=== PATIENT | male | born 1970 | race Caucasian/White ===

== ENCOUNTER 2022-03-15 01:10 | Inpatient (IN) | payer BC ==
[~2022-03-15] VITALS: Ht 175.3 cm; Wt 95.5 kg
[2022-03-15 02:13] LABS: BASO # 0.1 10^3/uL (0.0-0.2); BASO % 0.6 % (0.0-1.0); EOS # 0.1 10^3/uL (0.0-0.5); EOS % 1.1 % (0.0-3.0); HEMATOCRIT 42.8 % (42.0-52.0); HEMOGLOBIN 15.1 g/dl (13.5-17.5); LYMPH # 1.7 10^3/uL (1.5-5.0); LYMPH % 21.6 % (24.0-44.0); MEAN CORPUSCULAR HEMOGLOBIN 29.2 pg (27.0-33.0); MEAN CORPUSCULAR HGB CONC 35.3 g/dl (32.0-36.5); MEAN CORPUSCULAR VOLUME 82.8 fl (80.0-96.0); MONO # 0.5 10^3/uL (0.0-0.8); MONO % 5.9 % (2.0-8.0); NEUTROPHILS # 5.5 10^3/uL (1.5-8.5); PLATELET COUNT, AUTOMATED 216 10^3/uL (150-450); RED BLOOD COUNT 5.17 10^6/uL (4.30-6.10); WHITE BLOOD COUNT 7.9 10^3/uL (4.0-10.0)
[2022-03-15 02:24] LABS: INR 0.89; PROTHROMBIN TIME 12.5 SECONDS (12.7-14.5)
[2022-03-15 02:57] LABS: ALBUMIN 3.8 GM/DL (3.2-5.2); ALT/SGPT 38 U/L (12-78); BILIRUBIN,DIRECT 0.1 MG/DL (0.0-0.2); BILIRUBIN,TOTAL 0.2 MG/DL (0.2-1.0); BLOOD UREA NITROGEN 21 MG/DL (7-18); CALCIUM LEVEL 8.9 MG/DL (8.5-10.1); CARBON DIOXIDE LEVEL 26 MEQ/L (21-32); CHLORIDE LEVEL 105 MEQ/L (98-107); CREATININE FOR GFR 1.42 MG/DL (0.70-1.30); ETHYL ALCOHOL (ETHANOL) < 0.003 % (0.000-0.010); GLOMERULAR FILTRATION RATE 56.4 (>60); GLUCOSE, FASTING 148 MG/DL (70-100); NT-PRO BNP 10 PG/ML (<125); SODIUM LEVEL 137 MEQ/L (136-145); TOTAL PROTEIN 6.5 GM/DL (6.4-8.2)
[2022-03-15 03:22] LABS: CK-MB VALUE MASS < 1.0 NG/ML (<3.6); CPK CREATINE PHOSPHOKINASE 147 U/L (39-308); MB/CK RELATIVE INDEX 0.68 (< OR =4)
[2022-03-15] MEDS ORDERED: D200CAP3 PO (05:40)
[2022-03-15] MEDS ORDERED: HOME MED LIST COMPLETE! XX SCH (05:45)
[2022-03-15] MEDS ORDERED: METOPROLOL TART 25 MG TABLET PO SCH (06:00)
[2022-03-15] MEDS ORDERED: MOM 30ML SUSPENSION UDC PO PRN (06:00)
[2022-03-15] MEDS ORDERED: ACETAMINOPHEN TAB 650MG DOSE (2X325MG) PO PRN (06:00)
[2022-03-15] MEDS ORDERED: MAALOX 30 ML SUSP *UDC PO PRN (06:00)
[2022-03-15] MEDS ORDERED: HEPARIN SOD (PORCINE) 5000UNITS/ML 1ML VIAL/SYRINGE SC SCH (06:00)
[2022-03-15 06:09] LABS: RSV AMPLIFICATION NEGATIVE (NEGATIVE)
[2022-03-15] MEDS: NS 1,000 ML IV SCH ×2 (06:44→10:33)
[2022-03-15 08:32] VITALS: BP 121/76
[2022-03-15] MEDS ORDERED: ASPIRIN 81 MG CHEW TABLET PO SCH (09:00)
[2022-03-15] MEDS ORDERED: METO1TAB87 PO (09:51)
[2022-03-15] MEDS ORDERED: ASPI81CH8 PO (09:51)
[2022-03-15] MEDS ORDERED: SELF1KIT MC (09:53)
[2022-03-15 13:36] VITALS: BP 123/76
[2022-03-15] MEDS ORDERED: ASPI81TA26 PO (17:44)
[2022-03-15] MEDS ORDERED: ACET-910 PO (17:44)
== END 2022-03-15 13:36 | disposition home or self-care (01) | DRG 201 ==
LOC: M ED 01:10 → M ED INP 06:00
PROVIDERS: ADMIT Family Medicine; ATTEND Family Medicine
DX: I48.91 Unspecified atrial fibrillation (principal); R55 Syncope and collapse; N17.9 Acute kidney failure, unspecified; I27.20 Pulmonary hypertension, unspecified; G47.33 Obstructive sleep apnea (adult) (pediatric); F12.10 Cannabis abuse, uncomplicated; N40.0 Benign prostatic hyperplasia without lower urinary tract symptoms; R94.6 Abnormal results of thyroid function studies

== ENCOUNTER 2022-03-15 14:53 | Inpatient (IN) | payer BC ==
[2022-03-14 22:45] VITALS: BP 120/68
[~2022-03-15] VITALS: Ht 175.3 cm; Wt 98.3 kg
[~2022-03-15 14:53] MED LIST: ASPI81CH8 PO; D200CAP3 PO; METO1TAB87 PO; SELF1KIT MC
[2022-03-15] MEDS ORDERED: NS 1,000 ML IV ONE (17:15)
[2022-03-15] MEDS ORDERED: ISOVUE-370 76% 100ML VIAL As Ordered ONE (17:23)
[2022-03-15] MEDS ORDERED: ACET-910 PO (17:44)
[2022-03-15] MEDS ORDERED: ASPI81TA26 PO (17:44)
[2022-03-15] MEDS ORDERED: HOME MED LIST COMPLETE! XX SCH (17:45)
[2022-03-15 17:58] LABS: BASO % 0.3 % (0.0-1.0); EOS % 0.2 % (0.0-3.0); HEMATOCRIT 47.7 % (42.0-52.0); HEMOGLOBIN 16.6 g/dl (13.5-17.5); LYMPH # 1.2 10^3/uL (1.5-5.0); LYMPH % 11.3 % (24.0-44.0); MEAN CORPUSCULAR HEMOGLOBIN 29.4 pg (27.0-33.0); MEAN CORPUSCULAR HGB CONC 34.8 g/dl (32.0-36.5); MEAN CORPUSCULAR VOLUME 84.6 fl (80.0-96.0); MONO # 0.4 10^3/uL (0.0-0.8); MONO % 4.2 % (2.0-8.0); NEUTROPHILS # 8.6 10^3/uL (1.5-8.5); NEUTROPHILS % 83.7 % (36.0-66.0); PLATELET COUNT, AUTOMATED 245 10^3/uL (150-450); RED BLOOD COUNT 5.64 10^6/uL (4.30-6.10); WHITE BLOOD COUNT 10.2 10^3/uL (4.0-10.0)
[2022-03-15 18:23] LABS: CK-MB VALUE MASS < 1.0 NG/ML (<3.6); CPK CREATINE PHOSPHOKINASE 135 U/L (39-308); MB/CK RELATIVE INDEX 0.74 (< OR =4)
[2022-03-15] MEDS: NS 1,000 ML IV SCH (18:30)
[2022-03-15 18:36] LABS: ALBUMIN 3.7 GM/DL (3.2-5.2); ALT/SGPT 36 U/L (12-78); BILIRUBIN,TOTAL 0.4 MG/DL (0.2-1.0); BLOOD UREA NITROGEN 17 MG/DL (7-18); CALCIUM LEVEL 9.3 MG/DL (8.5-10.1); CARBON DIOXIDE LEVEL 26 MEQ/L (21-32); CHLORIDE LEVEL 110 MEQ/L (98-107); CREATININE FOR GFR 1.31 MG/DL (0.70-1.30); FREE THYROXINE INDEX 3.5 % (1.4-3.8); GLOMERULAR FILTRATION RATE > 60.0 (>60); GLUCOSE, FASTING 102 MG/DL (70-100); POTASSIUM SERUM 4.7 MEQ/L (3.5-5.1); SODIUM LEVEL 142 MEQ/L (136-145); T UPTAKE 37 % (33-40); THYROXINE (T4) 9.5 UG/DL (4.5-12.0)
[2022-03-15] MEDS ORDERED: METOPROLOL TART 25 MG TABLET PO PRN (19:10)
[2022-03-15] MEDS ORDERED: ENOXAPARIN 100MG/1ML SYRINGE (J1650 PER 10MG) SC SCH (20:00)
[2022-03-16 05:20] VITALS: BP 122/72
[2022-03-16 05:34] LABS: HEMATOCRIT 43.9 % (42.0-52.0); HEMOGLOBIN 15.2 g/dl (13.5-17.5); MEAN CORPUSCULAR HEMOGLOBIN 29.2 pg (27.0-33.0); MEAN CORPUSCULAR HGB CONC 34.6 g/dl (32.0-36.5); MEAN CORPUSCULAR VOLUME 84.4 fl (80.0-96.0); PLATELET COUNT, AUTOMATED 221 10^3/uL (150-450); WHITE BLOOD COUNT 8.4 10^3/uL (4.0-10.0)
[2022-03-16 05:54] LABS: BLOOD UREA NITROGEN 18 MG/DL (7-18); CALCIUM LEVEL 8.7 MG/DL (8.5-10.1); CARBON DIOXIDE LEVEL 25 MEQ/L (21-32); CHLORIDE LEVEL 113 MEQ/L (98-107); CREATININE FOR GFR 1.34 MG/DL (0.70-1.30); GLOMERULAR FILTRATION RATE > 60.0 (>60); GLUCOSE, FASTING 94 MG/DL (70-100); POTASSIUM SERUM 4.3 MEQ/L (3.5-5.1); SODIUM LEVEL 143 MEQ/L (136-145)
[2022-03-16] MEDS: NS 1,000 ML IV SCH ×2 (06:51→17:28)
[2022-03-16] MEDS: ASPIRIN 81MG ENTERIC TABLET PO SCH (09:28)
[2022-03-16 11:22] LABS: PROLACTIN 4.1 NG/ML (2.1-17.7)
[2022-03-16 14:00] VITALS: BP 123/75
[2022-03-16 19:02] VITALS: BP_SYST 119; BP_SYST 121; BP_SYST 122; BP_DIAS 76; BP_DIAS 83
[2022-03-16 20:29] VITALS: BP 120/82
[2022-03-17] MEDS: NS 1,000 ML IV SCH ×2 (02:31→09:40)
[2022-03-17 04:05] VITALS: BP 119/85
[2022-03-17 04:30] VITALS: BP_SYST 120; BP_SYST 132; BP_DIAS 82; BP_DIAS 89
[2022-03-17 05:33] LABS: HEMATOCRIT 41.2 % (42.0-52.0); HEMOGLOBIN 14.3 g/dl (13.5-17.5); MEAN CORPUSCULAR HEMOGLOBIN 29.7 pg (27.0-33.0); MEAN CORPUSCULAR HGB CONC 34.7 g/dl (32.0-36.5); MEAN CORPUSCULAR VOLUME 85.5 fl (80.0-96.0); PLATELET COUNT, AUTOMATED 198 10^3/uL (150-450); RED BLOOD COUNT 4.82 10^6/uL (4.30-6.10); WHITE BLOOD COUNT 5.5 10^3/uL (4.0-10.0)
[2022-03-17 05:54] LABS: AMPHETAMINES LEVEL URINE NEGATIVE (NEGATIVE); BARBITURATES URINE NEGATIVE (NEGATIVE); BENZODIAZEPINES URINE NEGATIVE (NEGATIVE)
[2022-03-17 05:55] LABS: CANNABINOIDS URINE POSITIVE (NEGATIVE); COCAINE METABOLITE URINE NEGATIVE (NEGATIVE); METHADONE URINE NEGATIVE (NEGATIVE); OPIATES URINE NEGATIVE (NEGATIVE); PHENCYCLIDINE URINE NEGATIVE (NEGATIVE)
[2022-03-17 06:15] LABS: BLOOD UREA NITROGEN 18 MG/DL (7-18); CALCIUM LEVEL 8.4 MG/DL (8.5-10.1); CARBON DIOXIDE LEVEL 25 mmol/L (20-29); CHLORIDE LEVEL 111 MEQ/L (98-107); CREATININE FOR GFR 1.33 MG/DL (0.70-1.30); GLOMERULAR FILTRATION RATE > 60.0 (>60); GLUCOSE, FASTING 95 MG/DL (70-100); POTASSIUM SERUM 4.2 MEQ/L (3.5-5.1); SODIUM LEVEL 140 MEQ/L (136-145)
[2022-03-17] MEDS: ASPIRIN 81MG ENTERIC TABLET PO SCH (09:38)
== END 2022-03-17 14:25 | disposition home or self-care (01) | DRG 201 ==
LOC: M ED 14:53 → M ED INP 17:08 → M MSPAV 22:45
PROVIDERS: ADMIT General Practice; ATTEND Internal Medicine
DX: I48.91 Unspecified atrial fibrillation (principal); R55 Syncope and collapse; N17.9 Acute kidney failure, unspecified; I27.20 Pulmonary hypertension, unspecified; Z79.82 Long term (current) use of aspirin; Z79.899 Other long term (current) drug therapy